=== PATIENT | male | born 1960 | race Hispanic/Latino ===

== ENCOUNTER 2022-01-14 21:21 | Inpatient (IN) | payer OTHER, BC ==
[~2022-01-14 21:21] MED LIST: Iopamidol-370 76% 500 ML 1 ML ONE
[2022-01-14 21:55] LABS: #Basophils 0.1 thou/uL (0.0-0.2); #Eosinphils 0.2 thou/uL (0.0-0.7); #Lymphocytes 2.3 thou/uL (1.20-3.40); #Monocytes 0.5 thou/uL (0.11-0.59); #Neutrophils 3.3 thou/uL (1.40-6.50); %Basophils 0.8 % (0.0-1.0); %Eosinophils 3.6 % (0.0-10.0); %Lymphocytes 35.6 % (21.0-51.0); %Monocytes 8.3 % (0.0-10.0); %Neutrophils 51.7 % (42.0-75.0); Hemoglobin 15.1 g/dL (14.0-18.0); Mean Corpuscular HGB CONC 33.1 g/dL (32.0-36.0); Mean Corpuscular Hemoglobin 33.6 pg (27.0-31.0); Mean Platelet Volume 9.1 fL (7.4-10.4); Platelet Count 165 thou/uL (130-400); RBC Distribution Width 11.4 % (11.5-14.5); Red Blood Cell (RBC) Count 4.48 mill/uL (4.70-6.10); White Blood Cell (WBC) Count 6.5 thou/uL (4.8-10.8)
[2022-01-14 22:06] LABS: PTT 29.7 sec (22.9-36.1); Prothrombin Time 12.8 sec (12.0-14.7)
[2022-01-14 22:22] LABS: ALT (SGPT) 29 U/L (8-55); AST (SGOT) 20 U/L (5-34); Albumin 4.1 g/dL (3.4-4.8); Alcohol Less than 10 mg/dL (Less than 10); Alkaline Phosphatase 104 U/L (40-110); Anion Gap 13 mmol/L (10-20); BUN (Urea Nitrogen) 23 mg/dL (8.4-25.7); Bilirubin, Total 0.8 mg/dL (0.2-1.2); Calc. Creatinine Clearance 0 mL/min (70-130); Calcium 9.5 mg/dL (7.8-10.44); Carbon Dioxide 26 mmol/L (23-31); Chloride 103 mmol/L (98-107); Estimated GFR 67; Globulin 3.2 g/dL (2.4-3.5); Glucose 229 mg/dL (80-115); Lipase 30 U/L (8-78); Potassium 4.2 mmol/L (3.5-5.1); Protein, Total 7.3 g/dL (5.8-8.1); Sodium 138 mmol/L (136-145)
[2022-01-14] MEDS ORDERED: Ondansetron PF 4 MG/2 ML Vial IVP PRN (23:47)
[2022-01-14] MEDS ORDERED: TETANUS, DIPHTHERIA TOX,ADULT (TDVAX) 0.5 ML VIAL IM ONE (23:47)
[2022-01-14] MEDS ORDERED: Morphine 2 MG/ML VIAL SLOW IVP PRN (23:47)
[2022-01-14] MEDS ORDERED: traMADol HCl 50 MG TAB PO PRN (23:52)
[2022-01-15 00:14] LABS: Bilirubin Negative (Negative); Blood, Urine Negative (Negative); Clarity Clear (Clear); Glucose, Urine (Dipstick) 200 mg/dL (Negative); Ketone, Urine Negative (Negative); Leukocyte Negative Leu/uL (Negative); Nitrite Negative (Negative); Protein, Urine (Dipstick) 20 mg/dL (Neg-Trace); Specific Gravity, Urine 1.034 (1.002-1.036); Urobilinogen Normal mg/dL (Less than 2); pH, Urine 5.5 (5.0-9.0)
[2022-01-15] MEDS ORDERED: Diazepam 5 MG TAB ONE (00:55)
[2022-01-15 01:01] LABS: SARS-CoV-2 NAA Rapid Test Not Detected (NotDetected)
[2022-01-15] MEDS ORDERED: Lorazepam 2 MG/ML VIAL ONE (01:02)
[2022-01-15 04:19] LABS: #Eosinphils 0.1 thou/uL (0.0-0.7); #Lymphocytes 1.6 thou/uL (1.20-3.40); #Monocytes 0.5 thou/uL (0.11-0.59); #Neutrophils 3.8 thou/uL (1.40-6.50); %Basophils 0.3 % (0.0-1.0); %Eosinophils 2.5 % (0.0-10.0); %Lymphocytes 25.9 % (21.0-51.0); %Monocytes 8.3 % (0.0-10.0); %Neutrophils 63.1 % (42.0-75.0); Hemoglobin 13.7 g/dL (14.0-18.0); Mean Corpuscular HGB CONC 32.1 g/dL (32.0-36.0); Mean Corpuscular Hemoglobin 33.2 pg (27.0-31.0); Mean Platelet Volume 8.9 fL (7.4-10.4); Platelet Count 154 thou/uL (130-400); RBC Distribution Width 11.4 % (11.5-14.5); Red Blood Cell (RBC) Count 4.13 mill/uL (4.70-6.10)
[2022-01-15 04:29] LABS: PTT 30.6 sec (22.9-36.1); Prothrombin Time 13.2 sec (12.0-14.7)
[2022-01-15 04:38] LABS: Phosphorus 2.6 mg/dL (2.3-4.7)
[2022-01-15 04:39] LABS: Anion Gap 12 mmol/L (10-20); BUN (Urea Nitrogen) 19 mg/dL (8.4-25.7); Calc. Creatinine Clearance 0 mL/min (70-130); Calcium 8.7 mg/dL (7.8-10.44); Carbon Dioxide 23 mmol/L (23-31); Chloride 107 mmol/L (98-107); Estimated GFR 91; Glucose 191 mg/dL (80-115); Magnesium 1.4 mg/dL (1.6-2.6); Potassium 4.4 mmol/L (3.5-5.1); Sodium 138 mmol/L (136-145)
[2022-01-15] MEDS: Acetaminophen 500 MG TAB PO SCH ×3 (05:12→14:59)
[2022-01-15] MEDS: traMADol HCl 50 MG TAB PO SCH ×3 (05:14→14:59)
[2022-01-15] MEDS: Sodium Chloride 0.9% 1,000 ML IV SCH ×2 (05:14→06:05)
[2022-01-15 05:17] VITALS: BMI 42.9
[2022-01-15] MEDS ORDERED: Morphine 2 MG/ML VIAL SLOW IVP PRN (05:25)
[2022-01-15] MEDS ORDERED: Dextrose 5% in Water 1,000 ML IV PRN (05:51)
[2022-01-15] MEDS ORDERED: Dextrose 50% Abboject 50 ML SYRINGE SLOW IVP PRN (05:51)
[2022-01-15] MEDS ORDERED: Insulin Regular 300 UNITS/3 ML VIAL SC PRN (05:51)
[2022-01-15] MEDS ORDERED: Famotidine/PF 20 mg/2ml Vial SLOW IVP SCH (09:00)
[2022-01-15] MEDS ORDERED: Magnesium 2 GM/50 ML(in water) 2 GM in Premix Bag 1 BAG IVPB SCH (09:00)
[2022-01-15] MEDS: Pregabalin 50 MG CAP PO SCH ×2 (09:27→09:29)
[2022-01-15 16:00] VITALS: BP 153/94; TEMP 97.8
== END 2022-01-15 16:30 | disposition home or self-care (01) | DRG 52 ==
LOC: ERS 21:21 → SJJU 23:50
PROVIDERS: ADMIT Surgery; ATTEND Surgery
PROC: 0HQ0XZZ Repair Scalp Skin, External Approach (ICD-10-PCS; principal; 2022-01-14)
DX: S14.106A Unspecified injury at C6 level of cervical spinal cord, initial encounter (principal); C64.9 Malignant neoplasm of unspecified kidney, except renal pelvis; V43.62XA Car passenger injured in collision with other type car in traffic accident, initial encounter; E11.9 Type 2 diabetes mellitus without complications; S00.11XA Contusion of right eyelid and periocular area, initial encounter; Z20.822 Contact with and (suspected) exposure to COVID-19; F17.210 Nicotine dependence, cigarettes, uncomplicated; I10 Essential (primary) hypertension; S01.01XA Laceration without foreign body of scalp, initial encounter; Z79.84 Long term (current) use of oral hypoglycemic drugs; Z79.4 Long term (current) use of insulin
CPT/HCPCS: 36415; 36416; 70450; 70486; 71045; 71260; 72125; 74177; 80048; 80053; 80307; 81003; 83690; 83735; 84100; 85025; 85610; 85730; 86850; 86900; 86901; 93005; J1815; J2060; J3475; J7050; Q9967; S0028; U0002

== ENCOUNTER 2022-01-28 09:37 | Outpatient (CLI) | payer BC | END 2022-01-28 09:38 | disposition home or self-care (01) | LOC: TBSIIMAG 09:37 | PROVIDERS: ATTEND Neurological Surgery | DX: S16.1XXA Strain of muscle, fascia and tendon at neck level, initial encounter (principal); M47.812 Spondylosis without myelopathy or radiculopathy, cervical region | CPT/HCPCS: 72040 ==

== ENCOUNTER 2022-01-28 11:18 | Emergency (ER) | payer BC | END 2022-01-28 12:42 | disposition home or self-care (01) | LOC: ERS 11:18 | DX: S01.01XD Laceration without foreign body of scalp, subsequent encounter (principal); Z48.02 Encounter for removal of sutures ==